=== PATIENT | male | born 1960 | race Caucasian/White ===

== ENCOUNTER 2022-06-26 15:27 | Emergency (ER) | payer SELFPAY ==
--- NOTE | ~2022-06-26 | XR_ITS ---
EXAMINATION: XR chest 2V Exam Date/Time: 06/26/2022 16:15 CDT HISTORY: chest pain, NAUSEAS, LIGHT HEADNESS Comparison: None available. RESULT: Lines, tubes, and devices: None. Lungs and pleura: Diffuse moderate reticulonodular opacities with cuffing. Cardiomediastinal silhouette: Unremarkable. Other: No acute osseous or upper abdominal finding. IMPRESSION: Pulmonary opacities may represent bronchiolitis, as can be seen with atypical infection, asthma, aspi ration, and small airways disease. Reviewed, dictated and finalized at location K. IMPRESSION: Pulmonary opacities may represent bronchiolitis, as can be seen with atypical i nfection, asthma, aspiration, and small airways disease.
--- NOTE | 2022-06-26 15:29 | ECG_ITS ---
Measurements Intervals [place] Rate: 74 P: 49 [place]: 144 QRS: 37 QRSD: 80 T: 44 QT: 344 QTc: 383 Interpretive Statements SINUS RHYTHM NORMAL ECG NO PREVIOUS ECG AVAILABLE FOR COMPARISON Electronically Signed On 06-26-2022 15:34:22 CDT by Haider Hoffman D.O.
[2022-06-26 15:33] VITALS: BP 163/91; PULSE 74; RESP 16; TEMP 36.7; O2SAT 100
[2022-06-26 15:43] LABS: Basophils Percent Auto 0.5 % (0.2-1.2); Eosinophils Absolute Auto 0.1 K/mm3 (0-0.3); Eosinophils Percent Auto 1.4 % (0-4.4); Hemoglobin 17.3 g/dL (14.0-18.0); Immature Granulocyte Absolute 0.03 K/mm3 (0.00-0.031); Immature Granulocyte Percent A 0.4 % (0-0.5); Lymphocytes Absolute Auto 1.31 K/mm3 (0.9-3.2); Lymphocytes Percent Auto 16.5 % (18.3-44.2); Mean Corpuscular HGB Conc 33.9 g/dl (32-36); Mean Corpuscular Hemoglobin 29.6 pg (26-34); Mean Corpuscular Volume 87.2 fl (80-100); Mean Platelet Volume 11.8 fl (7.4-10.4); Monocytes Absolute Auto 0.5 K/mm3 (0.1-0.6); Monocytes Percent Auto 5.9 % (2.6-8.5); Neutrophils Percent Auto 75.3 % (45.5-73.1); Platelet Count Result 194 k/mm3 (150-375); Red Blood Count 5.85 M/mm3 (4.6-6.20); Red Cell Distribution Width 12.6 % (11.5-14.5); White Blood Count 7.9 K/mm3 (4.5-10.0)
[2022-06-26 15:54] LABS: Alanine Aminotransferase 31 U/L (6-50); Albumin Level 5.1 g/dL (3.5-5.1); Alkaline Phosphatase 80 U/L (38-126); Anion Gap 10 mmol/L (8-16); Aspartate Amino Transferase 30 U/L (17-59); Bilirubin,Total 1.3 mg/dL (0.2-1.3); Blood Urea Nitrogen 17 mg/dL (9-20); Calcium 9.7 mg/dL (8.4-10.2); Carbon Dioxide 26 mmol/L (22-30); Chloride 103 mmol/L (98-107); Estimated CRCL calculation 65 ml/min; Estimated Glomerular Filt Rate > 60; Glucose 109 mg/dL (65-110); Lipase 103 U/L (23-300); Potassium 3.9 mmol/L (3.4-5.0); Sodium 139 mmol/L (137-145)
[2022-06-26 16:05] LABS: Troponin I < 0.012 ng/mL (0.000-0.034)
--- NOTE | 2022-06-26 16:06 | ECG_ITS ---
Measurements Intervals [place] Rate: 67 P: 48 NV: 136 QRS: 34 QRSD: 84 T: 41 QT: 354 QTc: 374 Interpretive Statements SINUS RHYTHM BASELINE ARTIFACT- I, II, III, AVR, AVL, AVF NORMAL ECG COMPARED TO ECG 06/26/2022 15:31:21 NO SIGNIFICANT CHANGES Electronically Signed On 06-26-2022 16:14:19 CDT by Haider Hoffman D.O.
[2022-06-26 19:03] LABS: Troponin I < 0.012 ng/mL (0.000-0.034)
--- NOTE | 2022-06-26 20:19 | PC.NURSE ---
Patient left ED before being seen by provider after labs drawn and EKG completed. Patient encouraged to stay but stated 5 hours is entirely too long to wait for me . Patient encourage to return to the ED for any worsening sx.
== END 2022-06-26 20:19 | disposition left against medical advice (07) ==
PROVIDERS: Emergency Provider Emergency Medicine; PCP Internal Medicine Infectious Disease
DX: R07.9 Chest pain, unspecified (principal)
CPT/HCPCS: 36415; 71046; 80053; 83690; 84484; 85025; 93005; 99199